=== PATIENT | male | born 1975 | race Two or more races ===

== ENCOUNTER 2018-07-14 13:59 | Emergency (ER) | payer OTHER ==
[~2018-07-14] VITALS: Ht 175.3 cm; Wt 124.7 kg
[2018-07-14] MEDS ORDERED: NKM (14:08)
[2018-07-14 14:12] VITALS: BP 145/93
--- NOTE | 2018-07-14 14:25 | Emergency Room Report ---
History of Present Illness General Chief Complaint: Headache Source: Patient Present Illness HPI patient is a 43-year-old male with no significant past medical history her complaining of 3 days of sore throat, nasal congestion, and mild cough. Denies fevers/chills/SOB, Ferriter denies ear pain. Denies abdominal pain, nausea vomiting, patient mentions that his headache is associated with this nasal congestion denies chest pain, SOB, palpitations, dizziness and vision changes as recent travel Allergies: Coded Allergies: No Known Allergies (Unverified , 07/14/18) Patient History Past Medical History: see triage record Past Surgical History: none Immunizations: UTD Reviewed Nursing Documentation: PMH: Agreed; PSxH: Agreed Nursing Documentation-PMH Past Medical History: No Stated History Review of Systems All Other Systems: negative except mentioned in HPI Physical Exam Vital Signs Date Time Temp Pulse Resp B/P (MAP) Pulse Ox O2 Delivery O2 Flow Rate FiO2 07/14/18 14:02 98.4 97 16 145/93 96 Room Air 98.4 Sp02 EP Interpretation: reviewed, normal General Appearance: normal inspection, well appearing, no apparent distress Head: normocephalic Eyes: bilateral eye normal inspection, bilateral eye PERRL ENT: hearing grossly normal, TMs + canals normal, uvula midline, nasal congestion, pharyngeal erythema Neck: normal inspection, full range of motion, supple, thyroid normal Respiratory: normal inspection, chest non-tender, no rhonchi, no wheezing Cardiovascular #1: normal inspection, no edema, no murmur Gastrointestinal: normal inspection, soft Rectal: deferred Genitourinary: deferred Musculoskeletal: normal inspection, back normal Neurologic: normal inspection, alert, oriented x3 Psychiatric: normal inspection, judgement/insight normal Skin: normal inspection, normal color, no rash Lymphatic: normal inspection, no adenopathy Medical Decision Making PA Attestation all diagnoses and treatment plans are reviewed and discussed with my supervising physician Dr. West Diagnostic Impression: Primary Impression: URI (upper respiratory infection) ER Course patient is a 43-year-old male with no significant past medical history her complaining of 3 days of sore throat, nasal congestion, and mild cough. Denies fevers/chills/SOB, Ferriter denies ear pain. Denies abdominal pain, nausea vomiting, patient mentions that his headache is associated with this nasal congestion denies chest pain, SOB, palpitations, dizziness and vision changes as recent travel Ddx considered but are not limited to URI, strep throat, bronchitis Vital signs: are WNL, pt. is afebrile H&PE are most consistent with URI ORDERS: Emelina Salazar Mucinex D ED INTERVENTIONS: None required at this time. DISCHARGE: At this time pt. is stable for d/c to home. Will provide printed patient care instructions, and any necessary prescriptions. Care plan and follow up instructions have been discussed with the patient prior to discharge.rest and hydrate avoid spicy and s sweet food Last Vital Signs Date Time Temp Pulse Resp B/P (MAP) Pulse Ox O2 Delivery O2 Flow Rate FiO2 07/14/18 14:02 98.4 97 16 145/93 96 Room Air 98.4 Disposition: HOME, SELF-CARE Condition: Stable Scripts Guaifenesin/Pseudoephedrne Hcl (MUCINEX D ER TABLET) 1 Each Tab.er.12h 1 EACH PO DAILY, #10 TAB Prov: Geraldine Gonzalez 07/14/18 Benzonatate (Emelina Garcia) 100 Mg Capsule 100 MG ORAL THREE TIMES A DAY, #30 PERLE Prov: Geraldine Gonzalez.A. 07/14/18 Patient Instructions: Sinus Headache, Upper Respiratory Infection, Adult, Easy- to-Read Additional Instructions: take medication as directed, avoid sweets/spicy food, rest and hydrate. If fever chills are sent to the emergency room. Geraldine Gonzalez Jul 14, 2018 14:25
[2018-07-14] MEDS ORDERED: MUCINEX D ER T1 EACH PO (14:26)
[2018-07-14] MEDS ORDERED: TESSALON PERLE100 M2 ORAL (14:26)
[2018-07-14 14:40] VITALS: BP 145/93
== END 2018-07-14 14:48 | disposition home or self-care (01) ==
LOC: EMR 14:24
DX: J06.9 Acute upper respiratory infection, unspecified (principal)
CPT/HCPCS: 99283